=== PATIENT | female | born 1975 | race Hispanic/Latino ===

== ENCOUNTER 2021-06-23 21:28 | Observation (INO) | payer SELFPAY ==
[~2021-06-23] VITALS: Ht 172.7 cm; Wt 104.3 kg
[2021-06-23] MEDS ORDERED: ONDANSETRON HCL 4 MG ORAL DISINTEGRATING TAB PO ONE (22:15)
[2021-06-23] MEDS ORDERED: ONDANSETRON HCL 4 MG ORAL DISINTEGRATING TAB ONE (22:23)
[2021-06-23] MEDS ORDERED: ONDANSETRON HCL INJ 2MG/ML 2ML 2 MG/ML VIAL IV STA (22:26)
[2021-06-23] MEDS ORDERED: Morphine 4mg Syringe 4 MG/ML INJ IV ONE ×2 (22:30→22:45)
[2021-06-23] MEDS ORDERED: SODIUM CHLORIDE 0.9% 1000ML 1,000 ML ONE (23:07)
[2021-06-23] MEDS ORDERED: Morphine 4mg Syringe 4 MG/ML INJ ONE (23:07)
[2021-06-24] VITALS (7 sets, daily range): BP systolic 106–136; BP diastolic 58–99
[2021-06-24] MEDS ORDERED: ONDANSETRON HCL INJ 2MG/ML 2ML 2 MG/ML VIAL IV PRN
[2021-06-24] MEDS: CIPROFLOXACIN 400 MG/D5W 200ML 200 ML IV SCH ×3 (01:30→23:41)
[2021-06-24] MEDS: SODIUM CHLORIDE 0.9% 1000ML 1,000 ML IV SCH ×3 (01:45→14:45)
[2021-06-24 07:58] LABS: BASOPHILS % 0.4 % (0.0-1.0); EOSINOPHILS % 0.7 % (0.0-6.0); HEMATOCRIT 30.7 % (34.2-44.1); HEMOGLOBIN 9.6 g/dL (12.0-16.0); LYMPHOCYTES # (AUTO) 2.2 (1.0-3.2); LYMPHOCYTES % 40.4 % (18.0-39.1); MEAN CORPUSCULAR HEMOGLOBIN 28.7 pg (28-32); MEAN CORPUSCULAR HGB CONC 31.3 g/dL (31-35); MEAN CORPUSCULAR VOLUME 91.9 fL (81-99); MONOCYTES # (AUTO) 0.3 (0.2-0.8); MONOCYTES % 5.6 % (4.4-11.3); NEUTROPHILS # (AUTO) 2.9 (2.1-6.9); NEUTROPHILS % 52.7 % (38.7-80.0); PLATELET COUNT 194 x10e3/uL (140-360); RED BLOOD COUNT 3.34 x10e6/uL (3.6-5.1); RED CELL DISTRIBUTION WIDTH 15.7 % (11.7-14.4)
[2021-06-24] MEDS: Morphine 4mg Syringe 4 MG/ML INJ IV PRN ×3 (10:56→19:33)
[2021-06-24] MEDS ORDERED: FENTANYL CITRATE/PF 100MCG/2 ML INJ ONE (12:20)
[2021-06-24] MEDS ORDERED: PROPOFOL IV EMULSION 10 MG/ML 20 ML VIAL ONE (14:52)
[2021-06-24] MEDS ORDERED: LIDOCAINE HCL 2% LOCAL INJ 5 ML SDV VIAL INJ ONE (14:52)
[2021-06-24 15:51] LABS: INR 0.91
[2021-06-24] MEDS ORDERED: DONNATAL/LIDOCAINE/MAALOX 30 ML SUSP PO ONE (20:00)
[2021-06-24] MEDS: SUCRALFATE 1 GM/10 ML SUSP NG SCH (20:13)
[2021-06-24] MEDS: Pantoprazole IV 40 MG in SODIUM CHLORIDE 0.9% 50ML 50 ML IV SCH (20:13)
[2021-06-24] MEDS: HYDROMORPHONE 2MG/ML 2 MG/ML ML IV PRN (23:33)
[2021-06-25] VITALS: BP 144/98
[2021-06-25] MEDS: Pantoprazole IV 40 MG in SODIUM CHLORIDE 0.9% 50ML 50 ML IV SCH ×3 (01:56→10:38)
[2021-06-25] MEDS: SODIUM CHLORIDE 0.9% 1000ML 1,000 ML IV SCH ×2 (01:56→10:38)
[2021-06-25] MEDS: HYDROMORPHONE 2MG/ML 2 MG/ML ML IV PRN ×3 (03:49→12:51)
[2021-06-25 04:00] VITALS: BP 112/77
[2021-06-25 05:36] LABS: FERRITIN 30.36 ng/mL (4.63-204.00)
[2021-06-25 07:48] VITALS: BP 130/89
[2021-06-25] MEDS: SUCRALFATE 1 GM/10 ML SUSP NG SCH ×2 (07:55→12:48)
[2021-06-25 08:26] VITALS: BP 130/89
[2021-06-25 11:31] LABS: BASOPHILS % 0.5 % (0.0-1.0); EOSINOPHILS # (AUTO) 0.1 (0.0-0.4); EOSINOPHILS % 1.4 % (0.0-6.0); HEMATOCRIT 34.4 % (34.2-44.1); HEMOGLOBIN 10.5 g/dL (12.0-16.0); LYMPHOCYTES % 35.9 % (18.0-39.1); MEAN CORPUSCULAR HGB CONC 30.5 g/dL (31-35); MONOCYTES # (AUTO) 0.4 (0.2-0.8); MONOCYTES % 7.6 % (4.4-11.3); NEUTROPHILS % 54.2 % (38.7-80.0); PLATELET COUNT 231 x10e3/uL (140-360); RED BLOOD COUNT 3.62 x10e6/uL (3.6-5.1); RED CELL DISTRIBUTION WIDTH 15.9 % (11.7-14.4)
[2021-06-25 11:41] VITALS: BP 116/66
[2021-06-25] MEDS: CIPROFLOXACIN 400 MG/D5W 200ML 200 ML IV SCH (12:48)
[2021-06-25] MEDS ORDERED: CARAFATE1 GM/10 ML PO (14:02)
[2021-06-25] MEDS ORDERED: PROTONIX40 MG PO (14:02)
== END 2021-06-25 15:00 | disposition home or self-care (01) ==
LOC: FSED 22:12 → ERHOLD 23:57 → MED/SURG 06-24 02:29
DX: K31.7 Polyp of stomach and duodenum (principal); N39.0 Urinary tract infection, site not specified; K29.01 Acute gastritis with bleeding; K26.4 Chronic or unspecified duodenal ulcer with hemorrhage; K29.71 Gastritis, unspecified, with bleeding; Z20.822 Contact with and (suspected) exposure to COVID-19; Z85.41 Personal history of malignant neoplasm of cervix uteri; D62 Acute posthemorrhagic anemia
CPT/HCPCS: 36415 ×2; 43239; 74176; 80053; 81003; 82607; 82728; 82746; 83540; 84466; 85025 ×2; 85045; 85610; 87086; 88304; 88305; 88312; 94799; 99284; C9113 ×2; G0378 ×3; J0744 ×2; J1170 ×2; J2001; J2270 ×2; J2704; J3010; J7030 ×3; Q0162; U0002; 88342